=== PATIENT | male | born 2000 | race African-American/Black ===

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

== ENCOUNTER → 2018-02-04 | Outpatient (CLI) | payer OTHER ==
[2018-02-04 18:22] LABS: APPEARANCE, URINE CLEAR (CLEAR); BACTERIA, URINE AUTO NEGATIVE (NEGATIVE); BILIRUBIN, URINE AUTO NEGATIVE (NEGATIVE); BLOOD, URINE BLOOD NEGATIVE (NEGATIVE); COLOR, URINE YELLOW (YELLOW); GLUCOSE, URINE (UA) AUTO NEGATIVE (NEGATIVE); KETONE, URINE AUTO NEGATIVE (NEGATIVE); LEUKOCYTE ESTERASE, URINE AUTO NEGATIVE (NEGATIVE); MUCUS, URINE SMALL (NEGATIVE); NITRITE, URINE AUTO NEGATIVE (NEGATIVE); PROTEIN, URINE AUTO 2+ mg/dL (NEGATIVE); RBC, URINE AUTO 0 /HPF (0-3); SPECIFIC GRAVITY URINE AUTO 1.029 (1.002-1.035); SQUAMOUS EPITHELIAL CELL UR AU 0 /HPF (0-6); WBC, URINE AUTO 1 /HPF (0-3)
[2018-02-04 22:32] LABS: CHLAMYDIA DNA AMPLIFICATION NEGATIVE (NEGATIVE); GC DNA AMPLIFICATION NEGATIVE (NEGATIVE)
[2018-02-07 00:07] LABS: HSV IgM TYPES 1&2 1.35 Ratio (0.00-0.90); HSV TYPE I IgG SPECIFIC <0.91 index (0.00-0.90); HSV TYPE II IgG SPECIFIC <0.91 index (0.00-0.90)
== END ==
LOC: M LAB 17:15
DX: R30.0 Dysuria (principal); N50.9 Disorder of male genital organs, unspecified
CPT/HCPCS: 86694

== ENCOUNTER → 2018-03-13 | Outpatient (REF) | payer OTHER ==
[2018-03-16 00:12] LABS: HSV TYPE I IgG SPECIFIC <0.91 index (0.00-0.90); HSV TYPE II IgG SPECIFIC <0.91 index (0.00-0.90)
== END ==
LOC: M LAB REF 08:59
DX: B00.9 Herpesviral infection, unspecified (principal)
CPT/HCPCS: 86694